=== PATIENT | male | born 2000 | race Caucasian/White ===

== ENCOUNTER 2023-02-24 15:17 | Inpatient (IN) | payer BC, SELFPAY ==
--- NOTE | ~2023-02-24 | CT_ITS ---
EXAMINATION: CT SOFT TISSUE NECK AND HEAD WITH CONTRAST CLINICAL INFORMATION: Rule out abscess. COMPARISON: None TECHNIQUE: Following the administration of 85 mL of Omnipaque 300 intravenous contrast, helical imaging of the head and neck was performed in the axial plane with generation of coronal and sagittal reformatted images. This CT examination was performed using dose optimization techniques as appropriate, variously including the following: *Automated exposure control *Adjustment of mA and/or kV according to patient size (this includes techniques or standardized protocols for targeted exams where dose is matched to indication/reason for exam; i.e. extremities or head) *Use of iterative reconstruction technique DLP: 1296 mGy-cm FINDINGS: Neck: The adenoids are prominent within the nasopharynx. There is no retropharyngeal adenopathy or retropharyngeal collection. The palatine tonsils and lingual tonsils are mildly prominent but without other significant abnormality. No base of tongue lesion is seen. The oral cavity is unremarkable. There is no laryngeal lesion. The parotid and submandibular glands appear normal. Reactive appearing level 2A lymph nodes are seen bilaterally. The thyroid gland is unremarkable. The major neck vessels are normally opacified. There is redemonstration of the cavitary consolidation within the right lung. The spine is intact without abnormality. Head: There is no intracranial hemorrhage, extra-axial collection, mass effect, or infarction. No abnormal enhancement is seen. The ventricles are normal in size without hydrocephalus. The calvarium is intact. The imaged paranasal sinuses and mastoid air cells are clear. The dural venous sinuses are normally opacified. CT/CT soft tissue neck w IV con IMPRESSION: No neck mass or suspicious lymphadenopathy identified. No evidence of abscess. Redemonstration of cavitary consolidation within the right lung. No intracranial abnormality.
--- NOTE | ~2023-02-24 | CT_ITS ---
EXAMINATION: CT CHEST WITH CONTRAST CLINICAL INFORMATION: Cough. Fever. COMPARISON: None available. TECHNIQUE: Multidetector volumetric CT imaging of the chest was obtained after the administration of 65 mL of Omnipaque 350 intravenous contrast without immediate adverse reactions. Axial MIP volume rendering provided. Sagittal and coronal reformatted images were obtained. This CT examination was performed using dose optimization techniques as appropriate, variously including the following: *Automated exposure control *Adjustment of mA and/or kV according to patient size (this includes techniques or standardized protocols for targeted exams where dose is matched to indication/reason for exam; i.e. extremities or head) *Use of iterative reconstruction technique DLP: 316 mGy-cm. FINDINGS: LUNGS: There is a large region of consolidation in the right upper lobe, sparing portions of the apical and anterior segments with a dominant 5 x 5 x 4.5 cm cavitary component centrally. A fluid-fluid levels present within the cavitary component. There is surrounding ground-glass attenuation and peripheral patchy ground-glass and consolidative opacities as well as subtle interlobular septal thickening. Air bronchograms are noted extending through this region. Additional patchy foci of ground-glass and consolidative attenuation are present within the superior segment of the right lower lobe to a lesser extent. Right middle lobe and left lung are clear. Central airways are clear. MEDIASTINUM: Numerous subcentimeter right paratracheal and right hilar lymph nodes are identified, likely reactive in nature. Heart is normal in size. No pericardial effusion. Pectus excavatum deformity. Thyroid gland is unremarkable. PLEURA: There is no pleural effusion. No pleural mass or thickening. AXILLA: No lymphadenopathy. UPPER ABDOMEN: Unremarkable. OSSEOUS STRUCTURES: No acute osseous findings. CT/CT chest w IV con IMPRESSION: Large region of consolidation in the right upper lobe with a 5 cm cavitary component, most concerning for necrotizing pneumonia with abscess formation. Additional patchy foci of consolidation in the right lower lobe without additional cavitation. No evidence of empyema.
--- NOTE | ~2023-02-24 | XR_ITS ---
EXAMINATION: XR CHEST CLINICAL INFORMATION: Cough not going away. COMPARISON: None available. TECHNIQUE: 2 views of the chest were obtained. FINDINGS: Consolidation and air fluid level in the right upper lobe. The left lung is clear. The cardiomediastinal silhouette is stable. No effusion. XR/XR chest 2V IMPRESSION: Consolidation and air fluid level in the right upper lobe concerning for necrotizing pneumonia, pulmonary abscess, or less likely empyema. Chest CT with intravenous contrast is recommended for further evaluation.
[2023-02-24 15:29] VITALS: BP 107/64; PULSE 91; RESP 18; TEMP 36.8; O2SAT 96; BMI 26.4
--- NOTE | 2023-02-24 16:01 | ED.URI ---
HPI - URI/Sore Throat General Chief Complaint: Fever Stated Complaint: Fever/cough x1 wk Time Seen by Provider: 02/24/23 15:40 Source: patient Mode of arrival: ambulatory Limitations: no limitations History of Present Illness HPI Narrative: Patient is a 22-year-old male who presents emergency department for evaluation of intermittent fever responding to acetaminophen ibuprofen, chills, cold sweats, productive cough, previously with a sore throat that has since resolved. He was evaluated at Urgent Care earlier in the week, and states he had negative testing for COVID-19, influenza, and strep. he reports no improvement in symptoms thus prompting him to come to the emergency department. Related Data Allergies Allergy/AdvReac Type Severity Reaction Status Date / Time No Known Allergies Allergy Verified 02/24/23 15:28 Review of Systems Review of Systems: Yes all other systems are reviewed and are negative [facility] Past Medical History Attestation statement: The following information was validated with the patient. Source: old records reviewed Social History Social History Advance Directives: No Advance Directives Information Provided: No Physical Exam Vital Signs: Vital Signs: Last Vital Signs Temp 97.8 F 02/24/23 17:54 Pulse 72 02/24/23 17:54 Resp 20 02/24/23 17:54 BP 118/61 02/24/23 17:54 Pulse Ox 98 02/24/23 17:54 O2 Del Method Room Air 02/24/23 17:54 BMI result Body Mass Index 26.4 Appearance: Alert.?Oriented to person, place and time. No acute distress.?Normal affect. Eyes: Pupils equal, round and reactive to light.? ENT: TM normal bilaterally. Pharynx normal.?? Neck: Normal inspection.? Neck supple.??No cervical adenopathy CVS: Heart sounds normal. Normal heart rate and rhythm.? Pulses normal.?? Respiratory: No respiratory distress.? Lung sounds with rhonchi to the right upper lobe, diminished at the bilateral bases. Abdomen: Soft and non-tender. Normoactive bowel sounds. Skin: Skin warm and dry.? Normal skin color.? ? Extremities: No lower extremity edema.? Neuro: Moves all extremities spontaneously. Sensation intact bilaterally. No motor deficits. Ambulates with normal steady gait. Course Reevaluation(s) Reevaluation #1: patient admitted to hospitalist service accepted by Dr. Briggs for necrotizing pneumonia Time: 19:06 Medications Administered Discontinued Medications Generic Name Dose Route Start Last Admin Trade Name Beau PRN Reason Stop Dose Admin Sodium Chloride 1,000 mls @ 999 mls/hr 02/24/23 17:00 02/24/23 17:14 Ns IV 02/24/23 18:00 999 mls/hr .Q1H1M BEAU Administration Piperacillin Sod/Tazobactam 50 mls @ 100 mls/hr 02/24/23 16:52 02/24/23 17:14 Sod 3.375 gm/ Sodium Chloride IV 02/24/23 17:21 100 mls/hr ONCE ONE Administration Iohexol 100 ml 02/24/23 17:46 02/24/23 17:46 Iohexol 350 Mg/Ml 100 Ml Infus..Btl IV 02/24/23 17:47 65 ml ONCE ONE Administration Medical Decision Making Medical Decision Making [facility] Narrative: patient is a 22-year-old male who presents emergency department for Evaluation persistent upper respiratory symptoms with cough fevers and chills. Chest x-ray obtained prior to my assumption of care for patient by protocol order reveals a right upper lobe consolidation and air-fluid level concerning for necrotizing pneumonia, pulmonary abscess, or less likely empyema. Patient reports no past medical history, denies recent antibiotic usage, denies recent travel, denies recent surgical procedure, denies concern for immunocompromising conditions such as HIV, denies vaping or tobacco usage. he is afebrile without tachypnea or hypoxia. Overall he is well-appearing. Will obtain CBC, CMP, blood cultures, lactic acid, CT of the chest with IV contrast for further evaluation. Patient received 1 L normal saline IV fluid, it will cover with Zosyn IV. Differential Diagnosis Differential Diagnoses: The differential diagnosis associated with the presentation includes ( As noted above) Admission/Observation Consideration of admission/observation: Escalation of care including admission/observation considered Consult Healthcare Provider Management of the patient was discussed with: Hospitalist Lab Data [facility] Lab Attestation statement: I reviewed the patient's lab results. ( see course narrative for further detail) Leukocytosis [id number] with left shift. no lactic acidosis. Blood cultures pending. CMP overall unremarkable. 02/24/23 17:03 02/24/23 17:03 Labs: Lab Results 02/24/23 02/24/23 Range/Units 15:47 17:03 WBC 26.4 H (4.8-10.8) X10*3/uL RBC 4.85 (4.60-5.80) X10*6/uL Hgb 13.3 L (14.0-18.0) g/dl Hct 39.9 L (42.0-52.0) % MCV 82.3 (80.0-98.0) fL MCH 27.4 (27.0-33.0) pg MCHC 33.3 (31.0-36.0) g/dl RDW 14.6 (11.0-16.0) % Plt Count 400 (160-400) X10*3/uL MPV 9.8 (9.4-12.4) fL Immature Gran % (Auto) 1.2 H (0.0-0.4) % Neut % (Auto) 90.2 H (45-73) % Lymph % (Auto) 4.9 L (20-40) % [place] % (Auto) 3.0 (2-11) % Eos % (Auto) 0.2 (0-4) % Baso % (Auto) 0.5 (0-2) % Lymph # (Auto) 1.3 (1.2-4.9) X10*3/uL [place] # (Auto) 0.8 (0.1-1.2) X10*3/uL Eos # (Auto) 0.0 (0.0-0.4) X10*3/uL Baso # (Auto) 0.1 (0.0-0.2) X10*3/uL Abs Immat Gran (auto) 0.31 H (0.00-0.03) X10*3/uL Absolute Neuts (auto) 23.8 H (2.0-8.3) x10*3/uL Absolute Nucleated RBC 0.000 (0.0-0.012) X10*3/uL Nucleated RBC % (auto) 0.0 (0.0-0.2) /100WBC Smear Tech's Comments VERIFIED Sodium 137 (135-145) mmol/L Potassium 3.8 (3.3-5.1) mmol/L Chloride 101 (96-108) mmol/L Carbon Dioxide 26 (22-29) mmol/L Anion Gap 14 (12-20) BUN 7 L (9-16) mg/dL Creatinine 0.89 (0.5-1.4) mg/dL Estim Creat Clear Calc 145.3 Estimated GFR > 60 Random Glucose 107 (60-115) mg/dL Lactic Acid 1.2 (0.5-2.0) mmol/L Calcium 9.5 (8.4-10.2) mg/dL Total Bilirubin 0.4 (0.0-1.0) mg/dL AST 38 H (5-37) U/L ALT 48 H (0-40) U/L Alkaline Phosphatase 96 (39-117) U/L Total Protein 7.8 (6.5-8.0) g/dL Albumin 3.6 (3.5-5.0) g/dL Influenza Type A (PCR) NEGATIVE (Negative) Influenza Type B (PCR) NEGATIVE (Negative) RSV RNA Qual (PCR) NEGATIVE (Negative) SARS-CoV-2 RNA (RT-PCR) NEGATIVE (Negative) Independent Interpretation I performed an independent interpretation of an: Plain X-Ray Radiology Impression Discussion of test interpretation with radiology: I have reviewed the radiologist's reading. Radiologist Impression: XR/XR chest 2V IMPRESSION: Consolidation and air fluid level in the right upper lobe concerning for necrotizing pneumonia, pulmonary abscess, or less likely empyema. Chest CT with intravenous contrast is recommended for further evaluation. CT/CT chest w IV con IMPRESSION: Large region of consolidation in the right upper lobe with a 5 cm cavitary component, most concerning for necrotizing pneumonia with abscess formation. Additional patchy foci of consolidation in the right lower lobe without additional cavitation. No evidence of empyema. Independent Historian Clinical information obtained from an independent historian. History obtained from or confirmed by: Parent ( present at bedside who confirms history) Discharge Plan Discharge Clinical Impression: Necrotizing pneumonia Patient Disposition: Admitted As Inpatient
[2023-02-24 16:44] LABS: Influenza A PCR NEGATIVE (Negative); Influenza B PCR NEGATIVE (Negative); Resp Syncy Virus RNA Qual PCR NEGATIVE (Negative); SARS COV2 PCR INHOUSE NEGATIVE (Negative)
[2023-02-24 17:12] LABS: Basophils Absolute Auto 0.1 X10*3/uL (0.0-0.2); Basophils Percent Auto 0.5 % (0-2); Eosinophils Percent Auto 0.2 % (0-4); Hematocrit 39.9 % (42.0-52.0); Hemoglobin 13.3 g/dl (14.0-18.0); Imm Gran Abs Auto 0.31 X10*3/uL (0.00-0.03); Imm Gran Pct Auto 1.2 % (0.0-0.4); Lymphocytes Absolute Auto 1.3 X10*3/uL (1.2-4.9); Lymphocytes Percent Auto 4.9 % (20-40); MANUAL DIFF FLAG SCAN; Mean Corpuscular HGB Conc 33.3 g/dl (31.0-36.0); Mean Corpuscular Hemoglobin 27.4 pg (27.0-33.0); Mean Corpuscular Volume 82.3 fL (80.0-98.0); Mean Platelet Volume 9.8 fL (9.4-12.4); Monocytes Absolute Auto 0.8 X10*3/uL (0.1-1.2); Neutrophils Absolute Auto 23.8 x10*3/uL (2.0-8.3); Neutrophils Percent Auto 90.2 % (45-73); Platelet Count 400 X10*3/uL (160-400); Red Blood Count 4.85 X10*6/uL (4.60-5.80); Red Cell Distribution Width 14.6 % (11.0-16.0); SCAN SMEAR FLAG 1; White Blood Count 26.4 X10*3/uL (4.8-10.8)
[2023-02-24] MEDS: 0.9 % Sodium Chloride 1,000 ML 999 ML IV (17:14)
[2023-02-24] MEDS: Piperacillin Sodium/Tazobactam 3.375 GM in 0.9 % Sodium Chloride 50 ML IV (17:14)
[2023-02-24 17:22] LABS: Lactic Acid 1.2 mmol/L (0.5-2.0)
[2023-02-24 17:28] LABS: Alanine Aminotransferase 48 U/L (0-40); Albumin Level 3.6 g/dL (3.5-5.0); Alkaline Phosphatase 96 U/L (39-117); Anion Gap 14 (12-20); Aspartate Amino Transferase 38 U/L (5-37); Bilirubin Total 0.4 mg/dL (0.0-1.0); Blood Urea Nitrogen 7 mg/dL (9-16); Calcium 9.5 mg/dL (8.4-10.2); Carbon Dioxide 26 mmol/L (22-29); Chloride 101 mmol/L (96-108); Creatinine Clr Calc Pharmacy 145.3; Estimated Glomerular Filt Rate > 60; Glucose Random 107 mg/dL (60-115); Potassium 3.8 mmol/L (3.3-5.1); Sodium 137 mmol/L (135-145); Total Protein 7.8 g/dL (6.5-8.0)
[2023-02-24] MEDS: iohexoL 350 MG/ML 100 ML INFUS..BTL IV (17:46)
[2023-02-24 17:54] VITALS: BP 118/61; PULSE 72; RESP 20; TEMP 36.6; O2SAT 98
[2023-02-24 18:19] LABS: SLIDE REVIEW VERIFIED
[2023-02-24] MEDS: Ampicillin Sodium/Sulbactam Na 3 GM in 0.9 % Sodium Chloride 100 ML IV (19:42)
[2023-02-24] MEDS: Enoxaparin Sodium 40 MG/0.4 ML SYRINGE SUBCUT (19:42)
--- NOTE | 2023-02-24 19:44 | P.HPHOSP_ITS ---
History of Present Illness Date of Service: 02/24/23 Chief Complaint: Fever, chills and cough This is a 22-year-old male with no pertinent past medical history and not on prescription medications who presents to the emergency department for evaluation of fever, chills and cough. Patient states that started 8 days prior to presentation. No sick contacts. He has been having fever and chills, no diurnal variation. Also has been having productive cough over the last 8 days with yellowish sputum production. Over the last 3-4 days also has been having blood-tinged sputum. No recent travels. He was tested negative at urgent care for flu/COVID. No recent antibiotic use or smoking tobacco or vaping. No history of HIV or diabetes. No nausea, vomiting, chest pain, palpitations, abdominal pain, changes in urinary or bowel habits. In the emergency department, patient was found to be septic and imaging concerning for right-sided necrotizing pneumonia with abscess formation Review of Systems 2 Constitutional: Constitutional: Reports chills and Reports fever(s) Cardiovascular: Cardiovascular: Reports no additional cardiovascular complaints Respiratory: Respiratory: Reports cough Gastrointestinal: Gastrointestinal: Reports no additional gastrointestinal complaints Genitourinary: Genitourinary: Reports no additional male genitourinary complaints PMFSH Pertinent family history: No family history of early CAD Social History Advance Directives: No Advance Directives Information Provided: No Meds Allergies Allergy/AdvReac Type Severity Reaction Status Date / Time No Known Allergies Allergy Verified 02/24/23 15:28 Active Medications: Current Medications Acetaminophen (Acetaminophen 325 Mg Tablet) 650 mg PO Q6H PRN PRN Reason: Pain, Mild (Pain Scale 1-3) Enoxaparin Sodium (Enoxaparin Sodium 40 Mg/0.4 Ml Syringe) 40 mg SUBCUT Q24H [facility] Last Admin: 02/24/23 19:42 Dose: 40 mg Ampicillin Sodium/Sulbactam (Sodium 3 gm/ Sodium Chloride) 100 mls @ 200 mls/hr IV Q6H [facility] Last Admin: 02/24/23 19:42 Dose: 200 mls/hr Melatonin (Melatonin 3 Mg Tablet) 6 mg PO BEDTIME PRN PRN Reason: Insomnia Ondansetron HCl (Ondansetron Hcl 4 Mg/2 Ml Vial) 4 mg IVPUSH Q8H PRN PRN Reason: Nausea and Vomiting Sodium Chloride (0.9 % Sodium Chloride Flush 3 Ml Syringe) 3 ml IVFLUSH QSHIFT BEAU Physical Exam 2 Vital Signs and Narrative: Vital Signs: Last Vital Signs Temp 97.8 F 02/24/23 17:54 Pulse 72 02/24/23 17:54 Resp 20 02/24/23 17:54 BP 118/61 02/24/23 17:54 Pulse Ox 98 02/24/23 17:54 O2 Del Method Room Air 02/24/23 17:54 BMI result Body Mass Index 26.4 Middle-aged male lying in bed in no distress Neck supple, no JVD Regular rate and rhythm, S1-S2 heard Regular breath sounds bilaterally, right-sided crackles Abdomen soft nontender, no guarding, no rigidity Patient is awake, alert and oriented to self, place, time and person ; no focal motor deficit Psych: Normal mood No pedal edema Results Labs 02/24/23 17:03 02/24/23 17:03 Labs: Laboratory Results - last 24 hr 02/24/23 02/24/23 15:47 17:03 MCV 82.3 MCH 27.4 MCHC 33.3 RDW 14.6 Plt Count 400 MPV 9.8 Immature Gran % (Auto) 1.2 H Neut % (Auto) 90.2 H Lymph % (Auto) 4.9 L [place] % (Auto) 3.0 Eos % (Auto) 0.2 Baso % (Auto) 0.5 Lymph # (Auto) 1.3 [place] # (Auto) 0.8 Eos # (Auto) 0.0 Baso # (Auto) 0.1 Abs Immat Gran (auto) 0.31 H Absolute Neuts (auto) 23.8 H Absolute Nucleated RBC 0.000 Nucleated RBC % (auto) 0.0 Smear Tech's Comments VERIFIED Anion Gap 14 Estim Creat Clear Calc 145.3 Estimated GFR > 60 Random Glucose 107 Lactic Acid 1.2 Calcium 9.5 Total Bilirubin 0.4 AST 38 H ALT 48 H Alkaline Phosphatase 96 Total Protein 7.8 Albumin 3.6 Influenza Type A (PCR) NEGATIVE Influenza Type B (PCR) NEGATIVE RSV RNA Qual (PCR) NEGATIVE SARS-CoV-2 RNA (RT-PCR) NEGATIVE Imaging Radiologist's Impressions: Impressions Chest X-Ray 02/24/23 16:10 IMPRESSION: Consolidation and air fluid level in the right upper lobe concerning for necrotizing pneumonia, pulmonary abscess, or less likely empyema. Chest CT with intravenous contrast is recommended for further evaluation. Chest CT 02/24/23 17:46 IMPRESSION: Large region of consolidation in the right upper lobe with a 5 cm cavitary component, most concerning for necrotizing pneumonia with abscess formation. Additional patchy foci of consolidation in the right lower lobe without additional cavitation. No evidence of empyema. Assessment and Plan (1) Necrotizing pneumonia: Status: Acute Plan This is a 22-year-old male with no pertinent past medical history and not on prescription medications who presents to the emergency department for evaluation of fever, chills and cough. #. Sepsis due to right-sided necrotizing pneumonia with abscess formation: Will admit patient and initiate empiric IV antibiotics. Resuscitated with IV crystalloids. Lactic acid obtained. Blood culture and sputum culture pending. Obtained MRSA nasal screen. Consulting pulmonology, appreciate assistance DVT prophylaxis: Lovenox Full code Admit as inpatient and will require two night minimum hospital stay for IV antibiotics (as above), which is not possible in a lesser acute setting. Specialist consult pending Quality Stroke Does the patient have a stroke diagnosis?: No VTE Prior VTE?: No VTE Risk Level:: Medical - moderate - high VTE Device Contraindication: Treatment Not Indicated VTE Drug Contraindication: N/A - Med Ordered
[2023-02-24 20:00] VITALS: BP 117/68; PULSE 67; RESP 18; TEMP 36.9; O2SAT 98
[2023-02-24 20:01] VITALS: BMI 26.2
[2023-02-24] MEDS: 0.9 % Sodium Chloride Flush 3 ML SYRINGE IVFLUSH (20:19)
[2023-02-25] MEDS: Ampicillin Sodium/Sulbactam Na 3 GM in 0.9 % Sodium Chloride 100 ML IV ×4 (01:28→18:58)
[2023-02-25] MEDS: Acetaminophen 325 MG TABLET 650 MG PO ×2 (01:36→07:56)
[2023-02-25 01:40] VITALS: TEMP 38.8
--- NOTE | 2023-02-25 01:58 | PC.NURSE ---
tylenol for fever 102 temporal sputum culture sent to lab
[2023-02-25 03:11] VITALS: BP 115/60; PULSE 101; RESP 18; TEMP 36.8; O2SAT 95
[2023-02-25 05:25] LABS: MANUAL DIFF FLAG NO
[2023-02-25 05:27] LABS: Basophils Absolute Auto 0.1 X10*3/uL (0.0-0.2); Basophils Percent Auto 0.4 % (0-2); Eosinophils Absolute Auto 0.1 X10*3/uL (0.0-0.4); Eosinophils Percent Auto 0.4 % (0-4); Hematocrit 36.2 % (42.0-52.0); Imm Gran Abs Auto 0.08 X10*3/uL (0.00-0.03); Imm Gran Pct Auto 0.6 % (0.0-0.4); Lymphocytes Absolute Auto 1.4 X10*3/uL (1.2-4.9); Lymphocytes Percent Auto 10.1 % (20-40); Mean Corpuscular HGB Conc 33.1 g/dl (31.0-36.0); Mean Corpuscular Hemoglobin 27.4 pg (27.0-33.0); Mean Corpuscular Volume 82.6 fL (80.0-98.0); Mean Platelet Volume 9.9 fL (9.4-12.4); Monocytes Absolute Auto 0.8 X10*3/uL (0.1-1.2); Monocytes Percent Auto 5.5 % (2-11); Neutrophils Absolute Auto 11.8 x10*3/uL (2.0-8.3); Platelet Count 395 X10*3/uL (160-400); Red Blood Count 4.38 X10*6/uL (4.60-5.80); Red Cell Distribution Width 14.6 % (11.0-16.0); White Blood Count 14.2 X10*3/uL (4.8-10.8)
[2023-02-25 05:43] LABS: Anion Gap 11 (12-20)
[2023-02-25 05:51] LABS: Blood Urea Nitrogen 7 mg/dL (9-16); Calcium 8.8 mg/dL (8.4-10.2); Carbon Dioxide 27 mmol/L (22-29); Chloride 105 mmol/L (96-108); Estimated Glomerular Filt Rate > 60; Glucose Random 133 mg/dL (60-115); Potassium 4.4 mmol/L (3.3-5.1); Sodium 139 mmol/L (135-145)
[2023-02-25 07:32] VITALS: BP 121/59; PULSE 85; RESP 17; TEMP 37.9; O2SAT 95
[2023-02-25] MEDS: 0.9 % Sodium Chloride Flush 3 ML SYRINGE IVFLUSH ×2 (07:57→15:03)
[2023-02-25 08:40] LABS: MRSA Nasal PCR NEGATIVE (Negative); SA Nasal PCR NEGATIVE (Negative)
--- NOTE | 2023-02-25 09:01 | MHC.CM.PN ---
CM MET WITH PT AT BEDSIDE. 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 +COVID VAX NO HCP BUT WILLING TO COMPLETE WHILE HERE. PCP DR. LIUDMILA FORD DP: PT IS HOPEFUL HE CAN RETURN TO SCHOOL ([facility]IV[facility] [place]) ON [place]. PARENTS WILL TRANSPORT. CM WILL CONTINUE TO FOLLOW FOR ANY CHANGE IN DC PLAN/NEEDS.
--- NOTE | 2023-02-25 09:37 | P.CONPL_ITS ---
History of Present Illness History of Present Illness Consult date: 02/25/23 Reason for consult: dyspnea, cough, chest pain and pneumonia Chief complaint: Fever Narrative: PULMONARY CONSULT I have seen this 22 years older relatively healthy looking gentleman, admitted since yesterday with 1 weeks history of fever chills cough with yellowish phlegm. Prior to this he has been in good general health. Denies any exposure to sick persons. Initially seen in the urgent care clinic where the testing for influenza and COVID were all negative. He denies history of smoking or vaping. Also denies history of any nausea or vomiting . In the emergency room the chest x-ray is grossly abnormal showing consolidation in the right upper lobe with central cavitation. He has been started on Zosyn IV, He does not required to use any oxygen. This morning when I saw her he is feeling relatively better, but still has a ease sense of some chills. Review of Systems 2 Review of Systems: Yes all other systems are reviewed and are negative [facility] Social History Social History Household Members: Friend(s) Household Members Other:: roommates at [employer] Housing: Apartment Do you presently have visiting nurse or other home services: No Patient Tobacco Use Status: Never used Tobacco service: No Meds Allergies Allergy/AdvReac Type Severity Reaction Status Date / Time No Known Allergies Allergy Verified 02/24/23 15:28 Active Medications: Current Medications Acetaminophen (Acetaminophen 325 Mg Tablet) 650 mg PO Q6H PRN PRN Reason: Pain, Mild (Pain Scale 1-3) Last Admin: 02/25/23 07:56 Dose: 650 mg Enoxaparin Sodium (Enoxaparin Sodium 40 Mg/0.4 Ml Syringe) 40 mg SUBCUT Q24H [facility] Last Admin: 02/24/23 19:42 Dose: 40 mg Ampicillin Sodium/Sulbactam (Sodium 3 gm/ Sodium Chloride) 100 mls @ 200 mls/hr IV Q6H [facility] Last Infusion: 02/25/23 08:43 Dose: Infused Melatonin (Melatonin 3 Mg Tablet) 6 mg PO BEDTIME PRN PRN Reason: Insomnia Ondansetron HCl (Ondansetron Hcl 4 Mg/2 Ml Vial) 4 mg IVPUSH Q8H PRN PRN Reason: Nausea and Vomiting Sodium Chloride (0.9 % Sodium Chloride Flush 3 Ml Syringe) 3 ml IVFLUSH QSHIFT [facility] Last Admin: 02/25/23 07:57 Dose: 3 ml Physical Exam 2 Vital Signs: Vital Signs: Last Vital Signs Temp 100.3 F 02/25/23 07:32 Pulse 85 02/25/23 07:32 Resp 17 02/25/23 07:32 BP 121/59 L 02/25/23 07:32 Pulse Ox 95 02/25/23 07:32 O2 Del Method Room Air 02/25/23 07:32 BMI result Body Mass Index 26.2 Const: General: healthy appearing, comfortable, no acute distress, alert and awake Orientation/consciousness: patient oriented x3 HEENT: Head: Yes normal to inspection General nose exam: No nasal polyps present and No nasal discharge present Face and sinus: Yes sinuses nontender Mouth: oropharynx normal Throat: Yes posterior oropharynx normal Eyes: General: appearance normal, both eyes and all related structures Neck: Neck: Yes normal visual inspection, Yes no lymphadenopathy, Yes trachea midline and Yes no JVD Thyroid: Thyroid normal Chest: Chest palpation & inspection: normal inspection of the chest, normal palpation of entire chest wall and no tenderness Resp: Other: Percussion note is resonant. He has good breath sounds on both sides. The breath sounds slightly decreased over the right upper lobe area, but I did not hear any crepitations or wheezes. Cardio: Palpation: normal PMI Rate: regular rate Rhythm: regular rhythm Heart sounds: no gallops and no murmurs Peripheral pulses: Peripheral pulses 2+ throughout GI: Palpation (GI): Soft to palpation, nontender, No hepatosplenomegaly present and no masses Auscultation: normal bowel sounds Back/Spine/Pelvis: Thoracic/Lumbar Spine: thoracic and lumbar spine normal to inspection Skin: General skin exam: no rashes or lesions noted Neuro: General: patient oriented x3 and no focal motor deficits Cranial nerves: Yes CN's II-XII intact bilaterally Extrem: General: Yes normal to inspection, Yes no clubbing, cyanosis or edema and Yes no calf tenderness Psych: Appearance: grossly normal and well kempt Speech and movement: N ormal speech and movement present Results Laboratory Findings 02/25/23 05:08 02/25/23 05:08 Abnormal lab findings: Abnormal Labs 02/24/23 02/25/23 17:03 05:08 WBC 26.4 H 14.2 H RBC 4.38 L Hgb 13.3 L 12.0 L Hct 39.9 L 36.2 L Immature Gran % (Auto) 1.2 H 0.6 H Neut % (Auto) 90.2 H 83.0 H Lymph % (Auto) 4.9 L 10.1 L Abs Immat Gran (auto) 0.31 H 0.08 H Absolute Neuts (auto) 23.8 H 11.8 H Anion Gap 11 L BUN 7 L 7 L Random Glucose 133 H AST 38 H ALT 48 H leukocytosis is improving Diagnostic Findings Chest x-ray: report reviewed and image reviewed CT scan - chest: report reviewed and image reviewed Assessment and Plan (1) Necrotizing pneumonia: Status: Acute Plan This the 22 years old, gentleman, with no previous pulmonary disease, and also no previous medical illness, Does evidence of necrotizing pneumonia in the right upper lobe, with the a huge area of consolidation and central cavitation. Most likely community-acquired pneumonia, may be secondary to Gram-negative organisms. He is improving with current treatment. Recc . I agree with the current treatment. Once he is afebrile for 24 hours and stable, change IV Zosyn to oral Augmentin which he should take at least for 2 weeks. He can be followed as outpatient, with repeat chest x-ray, and CT scan in a few weeks to ensure that the radiologic abnormality is cleared. Procedures Date of Service Date of Service: 02/25/23
--- NOTE | 2023-02-25 10:01 | PHA.MEDREC ---
Pharmacy Consult ? Medication Reconciliation Pharmacy has completed the medication reconciliation. Spoke to patient and verified medication list.
[2023-02-25 11:30] VITALS: TEMP 36.8
--- NOTE | 2023-02-25 11:56 | HO.PM.IMPN ---
Subjective Subjective Date of Service: 02/25/23 Interval History: Feeling better complaining of chills had low-grade fever, no worsening cough, no shortness of breath, no nausea, no vomiting, no abdominal pain, no other acute issues overnight. Review of Systems All other system reviewed and negative Physical Exam Vital Signs: Vital Signs: Last Vital Signs Temp 100.3 F 02/25/23 07:32 Pulse 85 02/25/23 07:32 Resp 17 02/25/23 07:32 BP 121/59 L 02/25/23 07:32 Pulse Ox 95 02/25/23 07:32 O2 Del Method Room Air 02/25/23 07:32 BMI result Body Mass Index 26.2 Const: Other: General well-built young gentleman i n no acute distres s Neck no lymphade nopathy, no JVD Re gular rate and rhy thm, S1-S2 heard R egular breath soun ds clear bilateral ly, no crackles Ab domen soft non ten nawaf, no guarding, no rigidity Neuro nonfocal Psych: N ormal mood No peda l edema Objective Data Active Medications Acetaminophen (Acetaminophen 325 Mg Tablet) 650 mg PO Q6H PRN PRN Reason: Pain, Mild (Pain Scale 1-3) Last Admin: 02/25/23 07:56 Dose: 650 mg Documented By: LUCHO Enoxaparin Sodium (Enoxaparin Sodium 40 Mg/0.4 Ml Syringe) 40 mg SUBCUT Q24H [facility] Last Admin: 02/24/23 19:42 Dose: 40 mg Documented By: ALDO Ampicillin Sodium/Sulbactam (Sodium 3 gm/ Sodium Chloride) 100 mls @ 200 mls/hr IV Q6H [facility] Last Infusion: 02/25/23 08:43 Dose: Infused Documented By: LUCHO Melatonin (Melatonin 3 Mg Tablet) 6 mg PO BEDTIME PRN PRN Reason: Insomnia Ondansetron HCl (Ondansetron Hcl 4 Mg/2 Ml Vial) 4 mg IVPUSH Q8H PRN PRN Reason: Nausea and Vomiting Sodium Chloride (0.9 % Sodium Chloride Flush 3 Ml Syringe) 3 ml IVFLUSH QSHIFT [facility] Last Admin: 02/25/23 07:57 Dose: 3 ml Documented By: LUCHO Labs 02/25/23 05:08 02/25/23 05:08 Labs: Laboratory Results - last 24 hr 02/24/23 02/24/23 02/24/23 15:47 17:03 20:17 MCV 82.3 MCH 27.4 MCHC 33.3 RDW 14.6 Plt Count 400 MPV 9.8 Immature Gran % (Auto) 1.2 H Neut % (Auto) 90.2 H Lymph % (Auto) 4.9 L Mclean % (Auto) 3.0 Eos % (Auto) 0.2 Baso % (Auto) 0.5 Lymph # (Auto) 1.3 Mclean # (Auto) 0.8 Eos # (Auto) 0.0 Baso # (Auto) 0.1 Abs Immat Gran (auto) 0.31 H Absolute Neuts (auto) 23.8 H Absolute Nucleated RBC 0.000 Nucleated RBC % (auto) 0.0 Smear Tech's Comments VERIFIED Anion Gap 14 Estim Creat Clear Calc 145.3 Estimated GFR > 60 Random Glucose 107 Lactic Acid 1.2 Calcium 9.5 Total Bilirubin 0.4 AST 38 H ALT 48 H Alkaline Phosphatase 96 Total Protein 7.8 Albumin 3.6 Nasal Screen MRSA (PCR) NEGATIVE Nasal S. aureus Screen NEGATIVE Nasal MRSA/S.aureus Interp SEE NOTE Influenza Type A (PCR) NEGATIVE Influenza Type B (PCR) NEGATIVE RSV RNA Qual (PCR) NEGATIVE SARS-CoV-2 RNA (RT-PCR) NEGATIVE 02/25/23 05:08 MCV 82.6 MCH 27.4 MCHC 33.1 RDW 14.6 Plt Count 395 MPV 9.9 Immature Gran % (Auto) 0.6 H Neut % (Auto) 83.0 H Lymph % (Auto) 10.1 L Mclean % (Auto) 5.5 Eos % (Auto) 0.4 Baso % (Auto) 0.4 Lymph # (Auto) 1.4 Mclean # (Auto) 0.8 Eos # (Auto) 0.1 Baso # (Auto) 0.1 Abs Immat Gran (auto) 0.08 H Absolute Neuts (auto) 11.8 H Absolute Nucleated RBC 0.000 Nucleated RBC % (auto) 0.0 Smear Tech's Comments Anion Gap 11 L Estim Creat Clear Calc 122.0 Estimated GFR > 60 Random Glucose 133 H Lactic Acid Calcium 8.8 D Total Bilirubin AST ALT Alkaline Phosphatase Total Protein Albumin Nasal Screen MRSA (PCR) Nasal S. aureus Screen Nasal MRSA/S.aureus Interp Influenza Type A (PCR) Influenza Type B (PCR) RSV RNA Qual (PCR) SARS-CoV-2 RNA (RT-PCR) Assessment and Plan (1) Necrotizing pneumonia: Status: Acute Plan 22-year-old male with no pertinent past medical history and not on prescription medications who presents to the emergency department for evaluation of fever, chills and cough. #. Sepsis due to right-sided necrotizing pneumonia with abscess formation: Low-grade fever this morning feeling chilly, denies shortness of breath, no worsening cough. WBC trending down blood cultures x2 and sputum culture pending. Influenza, RSV and COVID negative, no history of travel Seen by pulmonology they agree with current IV antibiotic and recommend by mouth Augmentin for total 2 weeks . Supportive care Outpatient follow-up with pulmonology for repeat imaging studies DVT prophylaxis: Lovenox Full code And in my clinical judgment patient need continued inpatient hospitalization for IV antibiotics (as above), which is not possible in a lesser acute setting. Quality Stroke Does the patient have a stroke diagnosis?: No VTE Prior VTE?: No VTE Risk Level:: Medical - moderate - high VTE Device Contraindication: Treatment Not Indicated VTE Drug Contraindication: N/A - Med Ordered
[2023-02-25 15:00] VITALS: BP 136/73; PULSE 88; RESP 18; TEMP 38.1; O2SAT 98
[2023-02-25] MEDS: Enoxaparin Sodium 40 MG/0.4 ML SYRINGE SUBCUT (18:57)
[2023-02-25 19:11] VITALS: BP 130/66; PULSE 87; RESP 14; TEMP 38; O2SAT 96
[2023-02-26] MEDS: Ampicillin Sodium/Sulbactam Na 3 GM in 0.9 % Sodium Chloride 100 ML IV ×4 (00:07→19:28)
[2023-02-26] MEDS: 0.9 % Sodium Chloride Flush 3 ML SYRINGE IVFLUSH ×3 (00:08→19:29)
[2023-02-26] MEDS: Acetaminophen 325 MG TABLET 650 MG PO (00:38)
[2023-02-26 04:00] VITALS: BP 122/72; PULSE 74; RESP 16; TEMP 36.6; O2SAT 97
--- NOTE | 2023-02-26 07:00 | CA_ITS ---
Transthoracic Echocardiogram Patient (Last, First, Middle): Loc Wright, Gender: Male Date of : 2000 Age: 22 Procedure Date: 02/26/2023 Procedure Type: Transthoracic Echocardiogram Location: S3E Height: 182.88 cm Weight: 88.45 kg BSA: 2.11 m2 Heart Rate: bpm BP: 133 / 78 mmHg Train Braker: Referring MD: Alize Mccord MD Symptoms: GPC bacteremia Study Quality: Fair ECG Rhythm: Sinus Conclusions: - The left ventricular systolic function is normal. The calculated ejection fraction is 59% by biplane method. - No obvious valvular pathology seen on this study. Findings Left Ventricle Normal left ventricular cavity size. There is normal left ventricular wall thickness. The left ventricular systolic function is normal. The calculated ejection fraction is 59% by biplane method. There is no evidence of regional wall motion abnormalities. Diastolic function is normal for age. Right Ventricle Normal right ventricular cavity size and systolic function. Atria Both atria are normal in size. Aortic Valve There is a normal trileaflet aortic valve. There is no aortic valve stenosis. There is no aortic valve regurgitation. Mitral Valve The mitral valve appears normal. There is no mitral valve regurgitation. There is no mitral valve stenosis. Pulmonic Valve The pulmonic valve is likely normal. Tricuspid Valve There is trace tricuspid valve regurgitation. There is no evidence of pulmonary hypertension. Great Vessels The asc aorta is normal in size. Venous The inferior vena cava is normal in size and collapses greater than 50% with inspiration. Pericardium/Pleural There is a trivial pericardial effusion. Prior Study Comparison No prior study available for comparison. Recommendations, Care & Conclusions No obvious valvular pathology seen on this study. Measurements 2D Linear Measurements IVSd: 0.86 0.6-0.9/0.6-1.0 cm LVIDd: 5.46 3.9-5.3/4.2-5.9 cm LVIDd Index: 2.59 2.4-3.2/2.2-3.1 cm/m2 LVIDs: 3.56 2.0-3.6 cm LVPWd: 0.90 0.7-1.1 cm LA Diam: 3.30 2.7-3.8/3.0-4.0 cm LAIDs Index: 1.56 1.5-2.3 cm/m2 LV Mass: 222.30 67-162/88-224 g LV Mass Index: 105.36 43-95/49-115 g/m2 LVOT Diam: 2.50 3.0+(-)1.3 cm 2D Systolic Function EF 4C: 60.30 >55% EF 2C: 57.50 >55% EF BiP: 59.00 >55% Mitral Valve MV Pk E: 0.96 MV PK A: 0.48 MV Decel Time: 200.00 E/A: 2.00 E'Lateral: 11.70 E'Medial: 12.00 E/E' Med: 8.00 E/E' Lat: 8.20 PHT: 59.00 MVA PHT: 3.73 Decel [place]: 4.78 Aortic Valve AoV Pk Guy: 1.16 AoV Mn Guy: 0.81 AoV VTI: 0.25 AoV Pk Grad: 5.00 Aov Mn Grad: 3.00 TEMO Cont.VTI: 4.15 LVOT LVOT Pk Guy: 1.14 LVOT Mn Guy: 0.72 LVOT VTI: 0.21 LVOT Pk Grad: 5.00 LVOT Mn Grad: 3.00 LVOT Diam: 2.50 LVOT Area: 4.91 Diastolic Function MV Pk E: 0.96 MV Pk A: 0.48 E/A: 2.00 E'Medial: 12.00 E/E' Med: 8.00 E' Laterial: 11.70 E/E' Lat: 8.20 Right Ventricle TAPSE (mm): 30.60 TVS' Guy: 16.40 Tricuspid Valve TR Pk Guy: 2.37 TR Pk Grad: 22.00 Great Vessels Aorta Sinus of Valsalva: 2.80 2.0-3.5 cm Ao Asc: 2.60 2.1-3.4 cm Pulmonary Valve PV Pk Guy: 1.09 Peak PV Grad: 5.00 Updated in Other Vendor System with Status of Final Angus Winslow MD electronically signed on 02/27/2023 9:43:37 AM with status of Final
[2023-02-26 07:24] VITALS: BP 133/78; PULSE 62; RESP 16; TEMP 36.2; O2SAT 96
[2023-02-26 09:15] LABS: Hematocrit 40.4 % (42.0-52.0); Hemoglobin 13.3 g/dl (14.0-18.0); Mean Corpuscular HGB Conc 32.9 g/dl (31.0-36.0); Mean Corpuscular Hemoglobin 27.4 pg (27.0-33.0); Mean Corpuscular Volume 83.1 fL (80.0-98.0); Mean Platelet Volume 9.9 fL (9.4-12.4); Platelet Count 501 X10*3/uL (160-400); Red Blood Count 4.86 X10*6/uL (4.60-5.80); Red Cell Distribution Width 14.8 % (11.0-16.0); White Blood Count 12.9 X10*3/uL (4.8-10.8)
[2023-02-26 09:29] LABS: Estimated Average Glucose 100 mg/dL; Hemoglobin A1c % 5.1 % (<6.0)
[2023-02-26 09:52] LABS: Procalcitonin 2.37 ng/mL
[2023-02-26 09:53] LABS: HIV AB/AG Nonreactive (Nonreactive); HIV Num 1 0.06 S/CO (0.00-0.99)
--- NOTE | 2023-02-26 14:48 | HO.PM.IMPN ---
Subjective Subjective Date of Service: 02/26/23 Interval History: T100.6 yesterday at 15:00 cough/dyspnea improved Review of Systems Review of Systems: Yes all other systems are reviewed and are negative Physical Exam Vital Signs: Vital Signs: Last Vital Signs Temp 97.1 F 02/26/23 07:24 Pulse 62 02/26/23 07:24 Resp 16 02/26/23 07:24 BP 133/78 02/26/23 07:24 Pulse Ox 96 02/26/23 07:24 O2 Del Method Room Air 02/26/23 07:24 BMI result Body Mass Index 26.2 Gen: in no acute distress HEENT: sclera anicteric, moist mucus membranes Neck: supple Lungs: clear to auscultation bilaterally Heart: regular rate and rhythm, no murmurs Abd: soft, non-tender, non-distended Ext: no edema Skin: warm/well-perfused Neuro: alert and oriented x3, no focal findings Psych: appropriate affect Objective Data Active Medications Acetaminophen (Acetaminophen 325 Mg Tablet) 650 mg PO Q6H PRN PRN Reason: Pain, Mild (Pain Scale 1-3) Last Admin: 02/26/23 00:38 Dose: 650 mg Documented By: HANNA Benzonatate (Benzonatate 100 Mg Capsule) 100 mg PO TID PRN PRN Reason: cough Enoxaparin Sodium (Enoxaparin Sodium 40 Mg/0.4 Ml Syringe) 40 mg SUBCUT Q24H [facility] Last Admin: 02/25/23 18:57 Dose: 40 mg Documented By: FELIX Ampicillin Sodium/Sulbactam (Sodium 3 gm/ Sodium Chloride) 100 mls @ 200 mls/hr IV Q6H [facility] Last Infusion: 02/26/23 13:47 Dose: Infused Documented By: RITIKA Melatonin (Melatonin 3 Mg Tablet) 6 mg PO BEDTIME PRN PRN Reason: Insomnia Ondansetron HCl (Ondansetron Hcl 4 Mg/2 Ml Vial) 4 mg IVPUSH Q8H PRN PRN Reason: Nausea and Vomiting Sodium Chloride (0.9 % Sodium Chloride Flush 3 Ml Syringe) 3 ml IVFLUSH QSHIFT [facility] Last Admin: 02/26/23 13:54 Dose: Not Given Documented By: RITIKA Non-Admin Reason: IV Running Labs 02/26/23 08:49 11/13/23 05:08 Labs: Laboratory Results - last 24 hr 02/26/23 08:49 MCV 83.1 MCH 27.4 MCHC 32.9 RDW 14.8 Plt Count 501 H D MPV 9.9 Absolute Nucleated RBC 0.000 Nucleated RBC % (auto) 0.0 Estimat Average Glucose 100 Hemoglobin A1c % 5.1 Procalcitonin 2.37 HIV 1&2 Ab/P24 Ag 4thGn Nonreactive Microbiology Microbiology Results: Microbiology 02/24/23 17:08 Blood Culture - Preliminary Blood - Venous Prelim: GPC Gram Stain only 02/24/23 17:03 Blood Culture - Preliminary Blood - Venous Prelim: GPC Gram Stain only 02/25/23 01:53 Gram Stain - Final Sputum - Expectorated Sputum Culture - Preliminary Culture in progress. Assessment and Plan (1) Necrotizing pneumonia: Status: Acute Plan d3 22yo M with no chronic medical conditions presenting with fever, chills and cough and found to be septic due to cavitary pneumonia, found to be bacteremic sepsis due to necrotizing PNA with abscess/cavity - continue amp-sul d3, follow BCx [growing GPCs in chains in blood], repeat BCx today, check TTE - Pulm consulted, will also consult ID - WBC trending down - HIV negative, non-diabetic, no travel/exposure history for endemic mycoses or TB - repeat CT in 2-4 weeks VTE ppx - LMWH dispo - eventual home In my clinical judgment, the patient requires continued inpatient hospitalization for the following reasons: IV ABX Total time managing care of this patient today: 35 minutes. Quality Stroke Does the patient have a stroke diagnosis?: No VTE Prior VTE?: No VTE Risk Level:: Medical - moderate - high VTE Device Contraindication: Treatment Not Indicated VTE Drug Contraindication: N/A - Med Ordered
[2023-02-26 15:13] VITALS: BP 125/68; PULSE 78; RESP 17; TEMP 36.3; O2SAT 98
[2023-02-26] MEDS: Enoxaparin Sodium 40 MG/0.4 ML SYRINGE SUBCUT (19:28)
[2023-02-26 19:30] VITALS: BP 123/72; PULSE 67; RESP 17; TEMP 36.6; O2SAT 95
[2023-02-27] MEDS: Ampicillin Sodium/Sulbactam Na 3 GM in 0.9 % Sodium Chloride 100 ML IV ×4 (01:18→19:05)
[2023-02-27 04:00] VITALS: BP 118/65; PULSE 85; RESP 16; TEMP 37; O2SAT 96
[2023-02-27 07:17] VITALS: BP 136/72; PULSE 61; RESP 18; TEMP 36.9; O2SAT 95
[2023-02-27] MEDS: 0.9 % Sodium Chloride Flush 3 ML SYRINGE IVFLUSH ×2 (07:32→19:06)
--- NOTE | 2023-02-27 10:46 | P.PNIM_ITS ---
Subjective Subjective Date of Service: 02/27/23 Interval History: cough improved; no further fever Review of Systems Review of Systems: Yes all other systems are reviewed and are negative Physical Exam 2 Vital Signs: Vital Signs: Last Vital Signs Temp 98.4 F 02/27/23 07:17 Pulse 61 02/27/23 07:17 Resp 18 02/27/23 07:17 BP 136/72 02/27/23 07:17 Pulse Ox 95 02/27/23 07:17 O2 Del Method Room Air 02/27/23 07:17 BMI result Body Mass Index 26.2 Gen: in no acute distress HEENT: sclera anicteric, moist mucus membranes Neck: supple Lungs: clear to auscultation bilaterally Heart: regular rate and rhythm, no murmurs Abd: soft, non-tender, non-distended Ext: no edema Skin: warm/well-perfused Neuro: alert and oriented x3, no focal findings Psych: appropriate affect Objective Data Active Medications Acetaminophen (Acetaminophen 325 Mg Tablet) 650 mg PO Q6H PRN PRN Reason: Pain, Mild (Pain Scale 1-3) Last Admin: 02/26/23 00:38 Dose: 650 mg Documented By: HANNA Benzonatate (Benzonatate 100 Mg Capsule) 100 mg PO TID PRN PRN Reason: cough Enoxaparin Sodium (Enoxaparin Sodium 40 Mg/0.4 Ml Syringe) 40 mg SUBCUT Q24H [facility] Last Admin: 02/26/23 19:28 Dose: 40 mg Documented By: HANNA Ampicillin Sodium/Sulbactam (Sodium 3 gm/ Sodium Chloride) 100 mls @ 200 mls/hr IV Q6H [facility] Last Infusion: 02/27/23 08:49 Dose: Infused Documented By: RITIKA Melatonin (Melatonin 3 Mg Tablet) 6 mg PO BEDTIME PRN PRN Reason: Insomnia Ondansetron HCl (Ondansetron Hcl 4 Mg/2 Ml Vial) 4 mg IVPUSH Q8H PRN PRN Reason: Nausea and Vomiting Sodium Chloride (0.9 % Sodium Chloride Flush 3 Ml Syringe) 3 ml IVFLUSH QSHIFT [facility] Last Admin: 02/27/23 07:32 Dose: 3 ml Documented By: RITIKA Labs 02/26/23 08:49 02/25/23 05:08 Microbiology Microbiology Results: Microbiology 02/25/23 01:53 Gram Stain - Final Sputum - Expectorated Sputum Culture - Preliminary Culture in progress. 02/24/23 17:08 Blood Culture - Preliminary Blood - Venous Prelim: GPC Gram Stain only 02/24/23 17:03 Blood Culture - Preliminary Blood - Venous Prelim: GPC Gram Stain only Assessment and Plan (1) Necrotizing pneumonia: Status: Acute Plan d4 22yo M with no chronic medical conditions presenting with fever, chills and cough and found to be septic due to cavitary pneumonia, found to be bacteremic sepsis due to necrotizing PNA with abscess/cavity - continue amp-sul d4, follow BCx [growing GPCs in chains in blood], repeat BCx from 02/26 pending to document clearance, TTE 02/26 without vegetations - Pulm + ID consulted - WBC trending down - HIV negative, non-diabetic, no travel/exposure history for endemic mycoses or TB - pending: IgA + IgG levels, CD4 count [to assess for idiopathic CD4 lymphocytopenia] - repeat CT in 2-4 weeks VTE ppx - LMWH dispo - home once documented bloodstream clearance In my clinical judgment, the patient requires continued inpatient hospitalization for the following reasons: IV ABX Total time managing care of this patient today: 35 minutes. Quality Stroke Does the patient have a stroke diagnosis?: No VTE Prior VTE?: No VTE Risk Level:: Medical - moderate - high VTE Device Contraindication: Treatment Not Indicated VTE Drug Contraindication: N/A - Med Ordered
[2023-02-27 15:34] VITALS: BP 143/63; PULSE 57; RESP 18; TEMP 36.3; O2SAT 96
--- NOTE | 2023-02-27 16:25 | W.PM.IDCN ---
History of Present Illness Data of Consult Service Date: 02/27/23 Requesting physician: Alize Mccord Primary Care Provider: Lincoln Forrest [facility] Reason for consult: Group A strep bacteremia,necrotizing lung infection He presents with sore throat and fatigue over last week with chills. He has Group A strep bacteremia and no cough. Lung exam necrotizing pneumonia. He is HIV negative. He has no travel or pet history. Review of Systems Review of Systems: Yes all other systems are reviewed and are negative [facility] Family History Family history: reviewed and not pertinent Social History Social History Household Members: Friend(s) Household Members Other:: roommates at [employer] Housing: Apartment Do you presently have visiting nurse or other home services: No Patient Tobacco Use Status: Never used Tobacco service: No Meds Allergies Allergy/AdvReac Type Severity Reaction Status Date / Time No Known Allergies Allergy Verified 02/24/23 15:28 Active Medications: Current Medications Acetaminophen (Acetaminophen 325 Mg Tablet) 650 mg PO Q6H PRN PRN Reason: Pain, Mild (Pain Scale 1-3) Last Admin: 02/26/23 00:38 Dose: 650 mg Benzonatate (Benzonatate 100 Mg Capsule) 100 mg PO TID PRN PRN Reason: cough Enoxaparin Sodium (Enoxaparin Sodium 40 Mg/0.4 Ml Syringe) 40 mg SUBCUT Q24H [facility] Last Admin: 02/26/23 19:28 Dose: 40 mg Ampicillin Sodium/Sulbactam (Sodium 3 gm/ Sodium Chloride) 100 mls @ 200 mls/hr IV Q6H [facility] Last Infusion: 02/27/23 14:25 Dose: Infused Melatonin (Melatonin 3 Mg Tablet) 6 mg PO BEDTIME PRN PRN Reason: Insomnia Ondansetron HCl (Ondansetron Hcl 4 Mg/2 Ml Vial) 4 mg IVPUSH Q8H PRN PRN Reason: Nausea and Vomiting Sodium Chloride (0.9 % Sodium Chloride Flush 3 Ml Syringe) 3 ml IVFLUSH QSHIFT [facility] Last Admin: 02/27/23 14:25 Dose: Not Given Home Medications Medication Instructions Recorded Confirmed Last Taken Type benzonatate 100 mg capsule 100 mg PO TID PRN cough 02/25/23 02/25/23 02/24/23 History Physical Exam Vital Signs: Vital Signs: Last Vital Signs Temp 97.4 F 02/27/23 15:34 Pulse 57 02/27/23 15:34 Resp 18 02/27/23 15:34 BP 143/63 H 02/27/23 15:34 Pulse Ox 96 02/27/23 15:34 O2 Del Method Room Air 02/27/23 15:34 BMI result Body Mass Index 26.2 Const: General: cooperative HEENT: Head: Yes normal to inspection Face and sinus: Yes normal facial exam Mouth: Normal oral and palatal mucosa present Teeth and gingiva: dentition normal Eyes: General: appearance normal, both eyes and all related structures Pupils: Equal, round and reactive pupils present Neck: Other: mild throat erythema Resp: Effort & Inspection: normal respiratory effort Cardio: Rate: regular rate Rhythm: regular rhythm GI: Palpation (GI): Soft to palpation and nontender : General: Yes no CVA tenderness Back/Spine/Pelvis: Back: no CVA tenderness Skin: General skin exam: no rashes or lesions noted Neuro: General: moves all extremities Cranial nerves: Yes Equal, round and reactive pupils present Extrem: General: Yes normal to inspection Psych: Appearance: grossly normal Results Labs 02/26/23 08:49 02/25/23 05:08 Microbiology Microbiology Results: Microbiology 02/24/23 17:08 Blood - Venous Blood Culture - Preliminary Prelim: GPC Gram Stain only 02/24/23 17:03 Blood - Venous Blood Culture - Preliminary Prelim: GPC Gram Stain only 02/25/23 01:53 Sputum - Expectorated Gram Stain - Final 02/25/23 01:53 Sputum - Expectorated Sputum Culture - Final Streptococcus pyogenes (Grp A) 02/26/23 08:49 Blood - Venous Blood Culture - Preliminary No growth after 24 hours. 02/26/23 08:49 Blood - Venous Blood Culture - Preliminary No growth after 24 hours. Assessment and Plan (1) Necrotizing pneumonia: Status: Acute This is probably due to Group A strep. This may likely have started from throat He has not had positive strep screen from throat. There is concern over oral invasive disease Plan Continue Unasyn. Check throat strep screen. Check CT scan neck with contrast if able ensure no spread of any airway/throat disease. If found, consider image brain evaluate any necrotic abscess/metastatic site there too. Check IgA and IgG levels
[2023-02-27] MEDS: Enoxaparin Sodium 40 MG/0.4 ML SYRINGE SUBCUT (19:06)
[2023-02-27 19:37] VITALS: BP 132/77; PULSE 65; RESP 18; TEMP 36.4; O2SAT 97
[2023-02-28] MEDS: Ampicillin Sodium/Sulbactam Na 3 GM in 0.9 % Sodium Chloride 100 ML IV ×4 (00:45→18:13)
[2023-02-28 03:20] VITALS: BP 111/70; PULSE 55; RESP 18; TEMP 36.7; O2SAT 97
[2023-02-28] MEDS: 0.9 % Sodium Chloride Flush 3 ML SYRINGE IVFLUSH ×2 (07:19→18:14)
[2023-02-28 07:29] VITALS: BP 117/67; PULSE 52; RESP 16; TEMP 36.1; O2SAT 98
--- NOTE | 2023-02-28 10:38 | MHC.CM.PN ---
Addendum entered by Elise Valentin 02/28/23 15:29: DC ON HOLD CULTURES ARE PENDING Original Note: Per MD rounds discharge today. Pt discharged to home self-care. Patient has arranged for transportation home.
--- NOTE | 2023-02-28 11:47 | HO.PM.IMPN ---
Subjective Subjective Date of Service: 02/28/23 Interval History: afebrile, minimal cough Review of Systems Review of Systems: Yes all other systems are reviewed and are negative Physical Exam Vital Signs: Vital Signs: Last Vital Signs Temp 96.9 F 02/28/23 07:29 Pulse 52 02/28/23 07:29 Resp 16 02/28/23 07:29 BP 117/67 02/28/23 07:29 Pulse Ox 98 02/28/23 07:29 O2 Del Method Room Air 02/28/23 07:29 BMI result Body Mass Index 26.2 Gen: in no acute distress HEENT: sclera anicteric, moist mucus membranes Neck: supple Lungs: clear to auscultation bilaterally Heart: regular rate and rhythm, no murmurs Abd: soft, non-tender, non-distended Ext: no edema Skin: warm/well-perfused Neuro: alert and oriented x3, no focal findings Psych: appropriate affect Objective Data Active Medications Acetaminophen (Acetaminophen 325 Mg Tablet) 650 mg PO Q6H PRN PRN Reason: Pain, Mild (Pain Scale 1-3) Last Admin: 02/26/23 00:38 Dose: 650 mg Documented By: HANNA Benzonatate (Benzonatate 100 Mg Capsule) 100 mg PO TID PRN PRN Reason: cough Enoxaparin Sodium (Enoxaparin Sodium 40 Mg/0.4 Ml Syringe) 40 mg SUBCUT Q24H [facility] Last Admin: 02/27/23 19:06 Dose: 40 mg Documented By: MARVIN Ampicillin Sodium/Sulbactam (Sodium 3 gm/ Sodium Chloride) 100 mls @ 200 mls/hr IV Q6H [facility] Last Infusion: 02/28/23 07:26 Dose: Infused Documented By: NICOLE Melatonin (Melatonin 3 Mg Tablet) 6 mg PO BEDTIME PRN PRN Reason: Insomnia Ondansetron HCl (Ondansetron Hcl 4 Mg/2 Ml Vial) 4 mg IVPUSH Q8H PRN PRN Reason: Nausea and Vomiting Sodium Chloride (0.9 % Sodium Chloride Flush 3 Ml Syringe) 3 ml IVFLUSH QSHIFT [facility] Last Admin: 02/28/23 07:19 Dose: 3 ml Documented By: NICOLE Labs 02/26/23 08:49 02/25/23 05:08 Labs: Laboratory Results - last 24 hr 02/28/23 05:25 Hold Purple Top SEE NOTE Microbiology Microbiology Results: Microbiology 02/26/23 08:49 Blood Culture - Preliminary Blood - Venous No growth after 48 hours. 02/26/23 08:49 Blood Culture - Preliminary Blood - Venous No growth after 48 hours. 02/24/23 17:08 Blood Culture - Preliminary Blood - Venous Prelim: GPC Gram Stain only 02/24/23 17:03 Blood Culture - Preliminary Blood - Venous Prelim: GPC Gram Stain only 02/25/23 01:53 Gram Stain - Final Sputum - Expectorated Sputum Culture - Final Streptococcus pyogenes (Grp A) Assessment and Plan (1) Necrotizing pneumonia: Status: Acute Plan d5 22yo M with no chronic medical conditions presenting with fever, chills and cough and found to be septic due to cavitary pneumonia, found to be bacteremic sepsis due to necrotizing PNA with abscess/cavity - continue amp-sul d5, follow BCx [growing GPCs in chains in blood from 02/24 with scant growth- still working on speciation], repeat BCx from 02/26 negative, TTE 02/26 without vegetations - Pulm + ID consulted - WBC trending down - HIV negative, non-diabetic, no travel/exposure history for endemic mycoses or TB - pending: IgA + IgG levels, CD4 count [to assess for idiopathic CD4 lymphocytopenia] - repeat CT in 3-4 weeks VTE ppx - LMWH dispo - home once species identified In my clinical judgment, the patient requires continued inpatient hospitalization for the following reasons: IV ABX, micro workup Total time managing care of this patient today: 35 minutes. Quality Stroke Does the patient have a stroke diagnosis?: No VTE Prior VTE?: No VTE Risk Level:: Medical - moderate - high VTE Device Contraindication: Treatment Not Indicated VTE Drug Contraindication: N/A - Med Ordered
[2023-02-28 14:20] LABS: Procalcitonin 0.63 ng/mL
[2023-02-28 16:00] VITALS: BP 134/73; PULSE 49; RESP 16; TEMP 37.1; O2SAT 98
[2023-02-28 16:23] VITALS: PULSE 60
[2023-02-28] MEDS: Enoxaparin Sodium 40 MG/0.4 ML SYRINGE SUBCUT (18:13)
[2023-02-28 19:51] VITALS: BP 139/80; PULSE 60; RESP 18; TEMP 37; O2SAT 97
[2023-03-01] MEDS: Ampicillin Sodium/Sulbactam Na 3 GM in 0.9 % Sodium Chloride 100 ML IV ×3 (00:55→13:39)
[2023-03-01] MEDS: 0.9 % Sodium Chloride Flush 3 ML SYRINGE IVFLUSH ×2 (00:55→13:39)
[2023-03-01 03:02] VITALS: BP 115/60; PULSE 55; RESP 18; TEMP 36.8; O2SAT 97
[2023-03-01 07:50] VITALS: BP 116/66; PULSE 68; RESP 17; TEMP 36.2; O2SAT 97
[2023-03-01 08:04] LABS: Absolute CD3 Count 2063 cells/uL (840-3060); Absolute CD4 Count 1054 cells/uL (490-1740); Absolute CD8 Count 893 cells/uL (180-1170); Absolute Lymphocytes 2598 cells/uL (850-3900); CD4 CD8 Ratio 1.18 (0.86-5.00); Percent CD3 Cells 79 % (57-85); Percent CD4 Cells 41 % (30-61); Percent CD8 Cells 34 % (12-42)
[2023-03-01] MEDS: iohexoL 350 MG/ML 75 ML INFUS..BTL 85 ML IV (11:23)
--- NOTE | 2023-03-01 13:11 | P.DS_ITS ---
DS: Providers Provider Date of Service: 03/01/23 Date of admission: 02/24/23 19:15 Date of discharge: 03/01/23 Primary care physician: Lincoln Forrest Consults: 02/24/23 19:15 Consult to Pulmonology Routine Consulting Provider: [facility] Pulmonology Services Reason for consultation: Lung abscess 02/26/23 08:02 Consult to Infectious Diseases Routine Consulting Provider: [facility] Infectious Disease Reason for consultation: necrotizing pna DS: Diagnosis Discharge Diagnosis (1) Necrotizing pneumonia: Status: Acute (2) Bacteremia: Status: Acute (3) Sepsis: Status: Acute DS: Summary Hospital Course Hospital Course: From admission H+P by hospitalist Tello Briggs, 02/24/23: This is a 22-year-old male with no pertinent past medical history and not on prescription medications who presents to the emergency department for evaluation of fever, chills and cough. Patient states that started 8 days prior to presentation. No sick contacts. He has been having fever and chills, no diurnal variation. Also has been having productive cough over the last 8 days with yellowish sputum production. Over the last 3-4 days also has been having blood-tinged sputum. No recent travels. He was tested negative at urgent care for flu/COVID. No recent antibiotic use or smoking tobacco or vaping. No history of HIV or diabetes. No nausea, vomiting, chest pain, palpitations, abdominal pain, changes in urinary or bowel habits. In the emergency department, patient was found to be septic and imaging concerning for right-sided necrotizing pneumonia with abscess formation 22yo M with no chronic medical conditions presenting with fever, chills and cough and found to be septic due to cavitary pneumonia. He was admitted to the hospitalist service. He was also found to be bacteremic. Blood cultures from 02/24 grew Micromonas micros, an oral anaerobe; 1 culture also grew a Gram positive ilene concerning for Actinomyces, and was sent to the [facility] reference lab for further identification. Repeat blood cultures from 02/26 negative. TTE on 02/[address] of head and neck on 03/01 without any abscess formation. Pulmonology and Infectious Disease were consulted. He was treated with 5 days of IV ampicillin-sulbactam. Fever resolved and his symptoms improved. Leukocytosis improved and procalcitonin came down. He is HIV- negative and not diabetic. No travel or exposure history for endemic mycoses or TB. He was discharged with 9 days of PO amoxicillin-clavulanate 875-125 mg twice daily. Pending studies at the time of discharge, besides blood culture reference studies, are IgA level, IgG level, Fungitell, and serum cryptococcal antigen. He should follow up with Dr Shahnaz Miller from [facility] Infectious Diseases in 1 week for ongoing care. His antibiotic regimen may need to be extended based on pending studies. He will need a repeat CT of the chest in 1 month to ensure resolution of the cavitary pneumonia. Time Attestation Total time managing care of this patient today: 40 mintues. Discharge coordination time: Greater than 30 minutes Quality: Safe Use of Opioids Does Pt have an Active Cancer Diagnosis on the Problem List?: No Quality: Stroke Does the patient have a stroke diagnosis?: No Physical Exam Vital Signs: Vital Signs: Last Vital Signs Temp 97.1 F 03/01/23 07:50 Pulse 68 03/01/23 07:50 Resp 17 03/01/23 07:50 BP 116/66 03/01/23 07:50 Pulse Ox 97 03/01/23 07:50 O2 Del Method Room Air 03/01/23 07:50 BMI result Body Mass Index 26.2 Gen: in no acute distress HEENT: sclera anicteric, moist mucus membranes Neck: supple Lungs: clear to auscultation bilaterally Heart: regular rate and rhythm, no murmurs Abd: soft, non-tender, non-distended Ext: no edema Skin: warm/well-perfused Neuro: alert and oriented x3, no focal findings Psych: appropriate affect DS: Data Data Completed and Pending Completed studies during hospitalization [Text1]: Laboratory Results WBC 12.9 X10*3/uL (4.8-10.8) H 02/26/23 08:49 RBC 4.86 X10*6/uL (4.60-5.80) 02/26/23 08:49 Hgb 13.3 g/dl (14.0-18.0) L 02/26/23 08:49 Hct 40.4 % (42.0-52.0) L 02/26/23 08:49 MCV 83.1 fL (80.0-98.0) 02/26/23 08:49 MCH 27.4 pg (27.0-33.0) 02/26/23 08:49 MCHC 32.9 g/dl (31.0-36.0) 02/26/23 08:49 RDW 14.8 % (11.0-16.0) 02/26/23 08:49 Plt Count 501 X10*3/uL (160-400) H D 02/26/23 08:49 MPV 9.9 fL (9.4-12.4) 02/26/23 08:49 Immature Gran % (Auto) 0.6 % (0.0-0.4) H 02/25/23 05:08 Neut % (Auto) 83.0 % (45-73) H 02/25/23 05:08 Lymph % (Auto) 10.1 % (20-40) L 02/25/23 05:08 [place] % (Auto) 5.5 % (2-11) 02/25/23 05:08 Eos % (Auto) 0.4 % (0-4) 02/25/23 05:08 Baso % (Auto) 0.4 % (0-2) 02/25/23 05:08 Lymph # (Auto) 1.4 X10*3/uL (1.2-4.9) 02/25/23 05:08 [place] # (Auto) 0.8 X10*3/uL (0.1-1.2) 02/25/23 05:08 Eos # (Auto) 0.1 X10*3/uL (0.0-0.4) 02/25/23 05:08 Baso # (Auto) 0.1 X10*3/uL (0.0-0.2) 02/25/23 05:08 Abs Immat Gran (auto) 0.08 X10*3/uL (0.00-0.03) H 02/25/23 05:08 Absolute Neuts (auto) 11.8 x10*3/uL (2.0-8.3) H 02/25/23 05:08 Absolute Nucleated RBC 0.000 X10*3/uL (0.0-0.012) 02/26/23 08:49 Nucleated RBC % (auto) 0.0 /100WBC (0.0-0.2) 02/26/23 08:49 Smear Tech's Comments VERIFIED 02/24/23 17:03 Hold Purple Top SEE NOTE 02/28/23 05:25 Sodium 139 mmol/L (135-145) 02/25/23 05:08 Potassium 4.4 mmol/L (3.3-5.1) 02/25/23 05:08 Chloride 105 mmol/L (96-108) 02/25/23 05:08 Carbon Dioxide 27 mmol/L (22-29) 02/25/23 05:08 Anion Gap 11 (12-20) L 02/25/23 05:08 BUN 7 mg/dL (9-16) L 02/25/23 05:08 Creatinine 1.06 mg/dL (0.5-1.4) 02/25/23 05:08 Estim Creat Clear Calc 122.0 02/25/23 05:08 Estimated GFR > 60 02/25/23 05:08 Random Glucose 133 mg/dL (60-115) H 02/25/23 05:08 Estimat Average Glucose 100 mg/dL 02/26/23 08:49 Hemoglobin A1c % 5.1 % (<6.0) 02/26/23 08:49 Lactic Acid 1.2 mmol/L (0.5-2.0) 02/24/23 17:03 Calcium 8.8 mg/dL (8.4-10.2) D 02/25/23 05:08 Total Bilirubin 0.4 mg/dL (0.0-1.0) 02/24/23 17:03 AST 38 U/L (5-37) H 02/24/23 17:03 ALT 48 U/L (0-40) H 02/24/23 17:03 Alkaline Phosphatase 96 U/L (39-117) 02/24/23 17:03 Total Protein 7.8 g/dL (6.5-8.0) 02/24/23 17:03 Albumin 3.6 g/dL (3.5-5.0) 02/24/23 17:03 Procalcitonin 0.63 ng/mL 02/28/23 05:25 Nasal Screen MRSA (PCR) NEGATIVE (Negative) 02/24/23 20:17 Nasal S. aureus Screen NEGATIVE (Negative) 02/24/23 20:17 Nasal MRSA/S.aureus Interp SEE NOTE 02/24/23 20:17 Total Lymphocytes 2598 cells/uL (850-3900) 02/27/23 05:47 % CD3 Cells 79 % (57-85) 02/27/23 05:47 Absolute CD3 Count 2063 cells/uL (840-3060) 02/27/23 05:47 % CD4 Cells 41 % (30-61) 02/27/23 05:47 Absolute CD4 Count 1054 cells/uL (490-1740) 02/27/23 05:47 CD4/CD8 Ratio 1.18 (0.86-5.00) 02/27/23 05:47 % CD8 Cells 34 % (12-42) 02/27/23 05:47 Absolute CD8 Count 893 cells/uL (180-1170) 02/27/23 05:47 HIV 1&2 Ab/P24 Ag 4thGn Nonreactive (Nonreactive) 02/26/23 08:49 Influenza Type A (PCR) NEGATIVE (Negative) 02/24/23 15:47 Influenza Type B (PCR) NEGATIVE (Negative) 02/24/23 15:47 RSV RNA Qual (PCR) NEGATIVE (Negative) 02/24/23 15:47 SARS-CoV-2 RNA (RT-PCR) NEGATIVE (Negative) 02/24/23 15:47 Impressions Chest X-Ray 02/24/23 16:10 IMPRESSION: Consolidation and air fluid level in the right upper lobe concerning for necrotizing pneumonia, pulmonary abscess, or less likely empyema. Chest CT with intravenous contrast is recommended for further evaluation. Chest CT 02/24/23 17:46 IMPRESSION: Large region of consolidation in the right upper lobe with a 5 cm cavitary component, most concerning for necrotizing pneumonia with abscess formation. Additional patchy foci of consolidation in the right lower lobe without additional cavitation. No evidence of empyema. Head CT 03/01/23 11:29 IMPRESSION: No neck mass or suspicious lymphadenopathy identified. No evidence of abscess. Redemonstration of cavitary consolidation within the right lung. No intracranial abnormality. Soft Tissue Neck CT 03/01/23 11:29 IMPRESSION: No neck mass or suspicious lymphadenopathy identified. No evidence of abscess. Redemonstration of cavitary consolidation within the right lung. No intracranial abnormality. Discharge Plan Discharge Anticipated Discharge Date/Time: 03/01/23 16:07 Patient Disposition: Home, Self-Care Discharge Diagnosis: Necrotizing pneumonia Bacteremia Referrals: Lincoln Brantley [Other] - 1 Week Ce Miller MD [Physician] - 1 Week Discharge Medications: New amoxicillin-pot clavulanate 875-125 mg tablet 1 tab PO BID Qty: 18 0RF Continued benzonatate 100 mg capsule 100 mg PO TID PRN (Reason: cough) Diet: Advance to usual diet Activity on Discharge: As tolerated Stand Alone Forms: Patient Portal Discharge page Care Plan Goals: Recovery from pneumonia Health Concerns: Necrotizing pneumonia Bacteremia Plan of Treatment: Amoxicillin-clavulanate 875-125 mg twice daily for 9 more days; possible e xtension depending on final blood culture results Follow up with infectious disease specialist Shahnaz Miller MD, within 1 week: [facility] Infectious Disease [address] [place] [address], [place] [id number] scan of chest in 1 month Please follow up with your primary care doctor within 1 week. Return to the hospital if you experience recurrent or worsening symptoms. Assessment: See Discharge Summary.
[2023-03-01 15:36] VITALS: BP 130/80; PULSE 64; RESP 18; TEMP 36.9; O2SAT 98
[2023-03-01 15:59] LABS: Immunoglobulin G Subclass 1 1184 mg/dL (382-929); Immunoglobulin G Subclass 2 140 mg/dL (241-700); Immunoglobulin G Subclass 3 214 mg/dL (22-178); Immunoglobulin G Subclass 4 6.6 mg/dL (4-86); Immunoglobulin G Total 1661 mg/dL (600-1640)
--- NOTE | 2023-03-01 15:59 | MHC.CM.PN ---
DP: PT HAS BEEN MEDICALLY CLEARED FOR DC HOME, NO SERVICES. FAMILY WILL TRANSPORT
[2023-03-01 16:29] LABS: Immunoglobulin A 127 mg/dL (47-310)
== END 2023-03-01 16:24 | disposition home or self-care (01) | DRG 720 ==
LOC: HO.ED 19:07 → HO.EDOVER 19:20 → HO.S3 19:30
PROVIDERS: Nurse Practitioner Family; Admitting Provider Student in an Organized Health Care Education/Training Program; Emergency Provider Emergency Medicine Emergency Medical Services; PCP Pediatrics; Visit Provider Family Medicine
DX: A41.9 Sepsis, unspecified organism (principal); J85.0 Gangrene and necrosis of lung; J85.1 Abscess of lung with pneumonia; B95.0 Streptococcus, group A, as the cause of diseases classified elsewhere; Z20.822 Contact with and (suspected) exposure to COVID-19
CPT/HCPCS: 0241U; 36415; 70460; 70491; 71046; 71260; 80048; 80053; 82784; 83036; 83605; 84145; 85025; 85027; 86359; 86360; 86403; 87040; 87070; 87076; 87077; 87147; 87185; 87205; 87389; 87449; 87640; 87641; 93306; 99285; J0295; J1650; J2543; Q9967

== ENCOUNTER 2023-02-24 19:15 | Outpatient (BNV) | payer BC, SELFPAY | END 2023-02-26 07:00 | PROVIDERS: Admitting Provider Student in an Organized Health Care Education/Training Program; Emergency Provider Emergency Medicine Emergency Medical Services; Visit Provider Internal Medicine | DX: R78.81 Bacteremia (principal) | CPT/HCPCS: 93306 ==

== ENCOUNTER → 2023-02-24 19:15 | Outpatient (BNV) | payer BC, SELFPAY | PROVIDERS: Admitting Provider Student in an Organized Health Care Education/Training Program; Emergency Provider Emergency Medicine Emergency Medical Services; Visit Provider Internal Medicine | DX: J85.0 Gangrene and necrosis of lung (principal) | CPT/HCPCS: 99222; 99232 ==

== ENCOUNTER → 2023-02-24 19:15 | Outpatient (BNV) | payer BC, SELFPAY | PROVIDERS: Admitting Provider Student in an Organized Health Care Education/Training Program; Emergency Provider Emergency Medicine Emergency Medical Services; Visit Provider Student in an Organized Health Care Education/Training Program | DX: A41.9 Sepsis, unspecified organism (principal); J85.0 Gangrene and necrosis of lung | CPT/HCPCS: 99222; 99232; 99233; 99239 ==

== ENCOUNTER → 2023-02-24 19:15 | Outpatient (BNV) | payer BC, SELFPAY | PROVIDERS: Admitting Provider Student in an Organized Health Care Education/Training Program; Emergency Provider Emergency Medicine Emergency Medical Services; Visit Provider Internal Medicine | DX: J85.0 Gangrene and necrosis of lung (principal) | CPT/HCPCS: 99222 ==

== ENCOUNTER 2023-03-15 13:30 | Outpatient (AMB) | payer BC, SELFPAY ==
--- NOTE | 2023-03-15 13:32 | A.OFFVIS_ITS ---
Intake Vital Signs 03/15/23 13:35 Height 6 ft Weight 198 lb BMI 26.9 Pulse 93 Pulse Source Pulse Oximeter Pulse Oximetry (%) 98 Intake Visit Reasons: Ref.[facility],Bacteremia Allergies No Known Allergies Allergy (Verified 03/15/23 13:38) HPI Ref.[facility],Bacteremia HPI Details He has had Group A strep bacteremia He is feeling improved now He doesnt have sore throat PFSH Social History Household Members: Friend(s) Household Members Other:: roommates at [employer] Housing: Apartment Do you presently have visiting nurse or other home services: No Patient Tobacco Use Status: Never used Tobacco service: No Review of Systems Const All systems reviewed & are unremarkable except as noted in HPI and below Physical Exam Vital Signs: Last Vital Signs Pulse 93 03/15/23 13:35 Pulse Ox 98 03/15/23 13:35 BMI result Body Mass Index 26.9 Const General: cooperative Orientation/consciousness: patient oriented x3 HEENT Head: Yes normal to inspection Mouth: Normal oral and palatal mucosa present Eyes General: appearance normal, both eyes and all related structures Pupils: Equal, round and reactive pupils present Resp Effort & Inspection: normal respiratory effort Cardio Rate: regular rate Rhythm: regular rhythm GI Palpation (GI): Soft to palpation and nontender General: Yes no CVA tenderness Back/Spine/Pelvis Back: no CVA tenderness Skin General skin exam: no rashes or lesions noted Neuro General: patient oriented x3 Cranial nerves: Yes CN's II-XII intact bilaterally and Yes Equal, round and reactive pupils present Extrem General: Yes normal to inspection Psych Appearance: grossly normal Assessment & Plan Assessment & Plan (1) Sepsis: Comment: He has had necrotizing pneumonia from Group A strep and possible anerobes He is HIV negative and has no immunosuppression seen Code(s): A41.9 - Sepsis, unspecified organism Plan: No further antibiotics at this time. Repeat CT scan chest six to eight weeks. (2) Bacteremia: Code(s): R78.81 - Bacteremia (3) Necrotizing pneumonia: Code(s): J85.0 - Gangrene and necrosis of lung Plan: `no abx Plan no abx Coding Level of Care Code Est Pt Level 3 (20586) Diagnoses Sepsis A41.9 Bacteremia R78.81 Necrotizing pneumonia J85.0
[2023-03-15 13:35] VITALS: PULSE 93; O2SAT 98; BMI 26.9
== END 2023-03-15 14:15 | disposition home or self-care (01) ==
PROVIDERS: PCP Pediatrics; Visit Provider Internal Medicine
DX: A41.9 Sepsis, unspecified organism (principal); R78.81 Bacteremia; J85.0 Gangrene and necrosis of lung
CPT/HCPCS: 99213

== ENCOUNTER → 2023-03-15 13:30 | Outpatient (BNVA) | payer BC, SELFPAY | PROVIDERS: PCP Pediatrics; Visit Provider Internal Medicine ==

== ENCOUNTER 2023-07-22 15:05 | Outpatient (REF) | payer BC, SELFPAY ==
--- NOTE | ~2023-07-22 | CT_ITS ---
EXAMINATION: CT CHEST WITHOUT CONTRAST CLINICAL INFORMATION: Gangrene and necrosis of the lungs. COMPARISON: CT chest 02/24/2023: Large region of consolidation in the right upper lobe with a 5 cm cavitary component, most concerning for necrotizing pneumonia with abscess formation. Additional patchy foci of consolidation in the right lower lobe without additional cavitation. No evidence of empyema. TECHNIQUE: Multidetector volumetric CT imaging of the chest was done. Axial MIP volume rendering provided. Sagittal and coronal reformatted images were obtained. This CT examination was performed using dose optimization techniques as appropriate, variously including the following: *Automated exposure control. *Adjustment of mA and/or kV according to patient size (this includes techniques or standardized protocols for targeted exams where dose is matched to indication/reason for exam; i.e. extremities or head). *Use of iterative reconstruction technique. DLP: 185 mGy-cm FINDINGS: LUNGS: The previously seen cavitary pneumonia in the right upper lobe is now nearly a thin-walled cyst measuring 4.8 x 2.9 x 4.0 cm. All of the inflammatory consolidative change has resolved. There is mild peribronchial thickening present bilaterally. No worrisome lung nodules are seen. There is a tiny 3 mm right middle lobe perifissural lymph node (5:281). MEDIASTINUM: The previously seen reactive mediastinal or hilar lymphadenopathy has all resolved. CORONARY ARTERY CALCIFICATION: None visualized on this study. PLEURA: There is no pleural effusion. No pleural mass or thickening. AXILLA: No lymphadenopathy. UPPER ABDOMEN: Unremarkable. OSSEOUS STRUCTURES: Unremarkable. CT/CT chest wo IV con IMPRESSION: 1. The previously seen cavitary pneumonia in the right upper lobe is now a thin-walled cyst measuring 4.8 x 2.9 x 4.0 cm. All of the inflammatory consolidative change has resolved. 2. The previously seen reactive mediastinal and hilar lymphadenopathy has all resolved. 3. No worrisome lung nodules are seen. Fleischner guidelines were followed.
== END 2023-07-22 15:06 | disposition home or self-care (01) ==
LOC: HO.CT 15:05
PROVIDERS: PCP Pediatrics; Visit Provider Pediatrics
DX: J85.0 Gangrene and necrosis of lung (principal)
CPT/HCPCS: 71250